=== PATIENT | male | born 1965 | race African-American/Black ===

== ENCOUNTER 2017-01-06 12:05 | Emergency (ER) | payer MEDICAID, OTHER ==
[~2017-01-06] VITALS: Ht 188 cm; Wt 113.5 kg
[~2017-01-06 12:05] MED LIST: AMLO2.5T PO; BENZ0.5T PO
[2017-01-06 12:06] VITALS: BP 185/109; PULSE 94; RESP 20; TEMP 98.2; O2SAT 100
--- NOTE | 2017-01-06 12:50 | PD ---
HPI . Weakness Chief Complaint: Medical Clearance Time Seen by Provider: 12:47 Travel History International Travel<30 days: No Contact w/Intl Traveler<30days: No Traveled to known affect area: No History of Present Illness HPI This patient presents stating that he needs to make sure that it is okay for him to take his psychiatric medications and his blood pressure medications on an as-needed basis. He states that he has had weakness, dizziness, cramping for somewhere between 7 months and 2 years. There was nothing new or different today that made him come to the emergency department. History Past Medical Histgory Tetanus Vaccination: > 5 Years Hx Cancer: No Past Surgical History Surgical History: No Previous Surgery Social History Alcohol Use: Yes ("ONCE IN A WHILE") Tobacco Use: Yes (4/day) Allergies-Medications (Allergen,Severity, Reaction): Coded Allergies: No Known Allergies (Verified Adverse Reaction, Unknown, 01/06/17) Reported Meds & Prescriptions Reported Meds & Active Scripts Active Amlodipine (Amlodipine Besylate) 2.5 Mg Tab 2.5 Mg PO DAILY Reported Benztropine (Benztropine Mesylate) 0.5 Mg Tab 2 Mg PO HS Review of Systems Except as stated in HPI: all other systems reviewed are Neg General / Constitutional: No: Fever, Chills Eyes: No: Blurred Vision HENT: Positive: Lightheadedness, No: Headaches Cardiovascular: No: Chest Pain or Discomfort Respiratory: No: Shortness of Breath Gastrointestinal: No: Nausea, Vomiting Genitourinary: No: Urgency, Frequency, Dysuria Musculoskeletal: Positive: Cramping Neurologic: Positive: Weakness Psychiatric: Positive: Disorder of Thought Physical Exam Narrative GENERAL: Healthy-appearing man who is in no acute distress. SKIN: Warm and dry with no rash or lesion. Good skin turgor. HEAD: Normocephalic/atraumatic. EYES: Conjunctivae are pink. Sclera are anicteric. ENT: Galliano and moist mucous membranes. NECK: Supple. CARDIOVASCULAR: Heart sounds are normal. RESPIRATORY: Lungs are clear with full air movement throughout. MUSCULOSKELETAL: Atraumatic. No muscular tenderness. NEUROLOGICAL: A and O 3. Cranial nerves are intact. Distal motor strength is full and equal. PSYCHIATRIC: Appropriate mood and affect. Data Data Last Documented VS Vital Signs Date Time Temp Pulse Resp B/P (MAP) Pulse Ox O2 Delivery O2 Flow Rate FiO2 11/16/17 12:06 98.2 94 20 185/109 (134) 100 Room Air MDM Medical Screen Exam Complete: Yes Emergency Medical Condition: No Narrative Course A medical screening exam was performed: At the time of evaluation the presenting medical condition was determined not to be of an emergent nature. The patient was given the option of receiving additional care, but declined. Patient was given options for additional community resources from which to obtain care. The Patient Has Been advised to seek medical attention for their presenting complaint. The patient has been advised to return to the ER at any time if an emergent condition develops. Primary Impression: Encounter for medical screening examination Condition: Stable Zee Perez MD Jan 06, 2017 12:50
== END 2017-01-06 13:03 | disposition left against medical advice (07) ==
LOC: NEPK 12:05
DX: R53.1 Weakness (principal); R42 Dizziness and giddiness; F17.200 Nicotine dependence, unspecified, uncomplicated; Z79.899 Other long term (current) drug therapy
CPT/HCPCS: 99281

== ENCOUNTER 2017-05-05 16:04 | Emergency (ER) | payer MEDICAID ==
[~2017-05-05] VITALS: Ht 188 cm; Wt 130.0 kg
[2017-05-05 16:39] VITALS: BP 190/120; PULSE 76; RESP 17; TEMP 98.2; O2SAT 98
[2017-05-05 17:54] VITALS: BP 108/57; PULSE 70; RESP 18; TEMP 98.7; O2SAT 98
[2017-05-05 18:20] VITALS: BP 189/124
[2017-05-05] MEDS ORDERED: LISI10TA3 PO (18:20)
--- NOTE | 2017-05-05 18:20 | PD ---
HPI Chief Complaint: Hypertension Time Seen by Provider: 17:55 Travel History International Travel<30 days: No Contact w/Intl Traveler<30days: No Traveled to known affect area: No History of Present Illness HPI Is a 52-year-old man presents to the emergency department complaining of elevated blood pressure. States she is a history of high blood pressure and schizophrenia. His primary doctor increase his amlodipine just recently. Is not sure what the current doses. This was yesterday. Blood pressure remained elevated today. Psychiatrist sent him to the emergency department. History Past Medical History Narrative Medical Hypertension Schizophrenia Social History Alcohol Use: Yes ("ONCE IN A WHILE") Tobacco Use: Yes (4/day) Allergies-Medications (Allergen,Severity, Reaction): Coded Allergies: No Known Allergies (Verified Adverse Reaction, Unknown, 05/05/17) Reported Meds & Prescriptions Reported Meds & Active Scripts Active Amlodipine (Amlodipine Besylate) 2.5 Mg Tab 2.5 Mg PO DAILY Reported Benztropine (Benztropine Mesylate) 0.5 Mg Tab 2 Mg PO HS Review of Systems Except as stated in HPI: all other systems reviewed are Neg Physical Exam Narrative GENERAL: Well-appearing 52-year-old man, no acute distress. SKIN: Focused skin assessment warm/dry. HEAD: Atraumatic. Normocephalic. EYES: Pupils equal and round. No scleral icterus. No injection or drainage. ENT: No nasal bleeding or discharge. Mucous membranes pink and moist. NECK: Trachea midline. No JVD. CARDIOVASCULAR: Regular rate and rhythm. No murmur appreciated. RESPIRATORY: No accessory muscle use. Clear to auscultation. Breath sounds equal bilaterally. GASTROINTESTINAL: Abdomen soft, non-tender, nondistended. Hepatic and splenic margins not palpable. MUSCULOSKELETAL: No obvious deformities. Some nail clubbing. NEUROLOGICAL: Awake and alert. No obvious cranial nerve deficits. Motor grossly within normal limits. Normal speech. PSYCHIATRIC: Flat affect. Data Data Last Documented VS Vital Signs Date Time Temp Pulse Resp B/P (MAP) Pulse Ox O2 Delivery O2 Flow Rate FiO2 05/05/17 16:39 98.2 76 17 190/120 (143) 98 Orders Orders Basic Metabolic Panel (Bmp) (05/05/17 18:13) MDM Medical Decision Making Medical Screen Exam Complete: Yes Emergency Medical Condition: Yes Differential Diagnosis Hypertension, hypertensive crisis, hypertensive emergency, renovascular hypertension, other Narrative Course Medical decision making INITIAL: 52-year-old male with markedly elevated blood pressure. Otherwise asymptomatic. Referred by a psychiatrist. They made some adjustments to his amlodipine already. Will check his renal function and add small dose of lisinopril. Outpatient follow-up. Diagnosis Primary Impression: Hypertension Additional Impression: Paranoid schizophrenia Additional Instructions: Continue amlodipine. Add lisinopril. Follow-up with your primary doctor next week. Return to the emergency department for any new or worsening symptoms. Med/Other Pt SpecificInfo: Prescription(s) given Scripts Lisinopril (Lisinopril) 10 Mg Tab 10 MG PO DAILY, #30 TAB 0 Refills Prov: Nicanor Crocker MD 05/05/17 Disposition: 01 DISCHARGE HOME Condition: Stable Nicanor Crocker MD May 05, 2017 18:20
[2017-05-05 18:53] LABS: BICARBONATE 27.1 MEQ/L (21.0-32.0); CALCIUM 9.3 MG/DL (8.5-10.1); CREATININE 1.17 MG/DL (0.60-1.30)
== END 2017-05-05 19:31 | disposition home or self-care (01) ==
LOC: NEPD 16:04
DX: I10 Essential (primary) hypertension (principal); F20.0 Paranoid schizophrenia; F17.200 Nicotine dependence, unspecified, uncomplicated; Z79.899 Other long term (current) drug therapy
CPT/HCPCS: 80048; 99283

== ENCOUNTER → 2017-06-27 | Outpatient (CLI) | payer MEDICAID ==
[~2017-06-27] MED LIST changes: +LISI10TA3 PO; +LOSA100T PO; +PALI234P IM
[2017-06-27 11:19] LABS: BASOPHIL % 0.7 % (0.0-2.0); EOSINOPHIL # 0.3 TH/MM3 (0-0.4); EOSINOPHIL % 3.8 % (0.0-4.0); HEMATOCRIT 34.7 % (39.0-51.0); HEMOGLOBIN 11.8 GM/DL (13.0-17.0); LYMPH % 27.6 % (9.0-44.0); LYMPHOCYTE # 1.9 TH/MM3 (1.0-4.8); MEAN CORPUSCULAR HEMOGLOBIN 28.6 PG (27.0-34.0); MEAN PLATELET VOLUME 6.9 FL (7.0-11.0); MONO % 8.7 % (0.0-8.0); MONOCYTE # 0.6 TH/MM3 (0-0.9); NEUT % 59.2 % (16.0-70.0); PLATELET COUNT 271 TH/MM3 (150-450); RED BLOOD COUNT 4.13 MIL/MM3 (4.50-5.90); RED CELL DISTRIBUTION WIDTH 14.2 % (11.6-17.2); WHITE BLOOD COUNT 6.8 TH/MM3 (4.0-11.0)
--- NOTE | 2017-06-28 14:34 | EKG ---
Date Performed: 06/27/2017 Time Performed: 11:32:03 PTAGE: 52 years EKG: Sinus rhythm MODERATE INTRAVENTRICULAR CONDUCTION DELAY NONSPECIFIC T-WAVE ABNORMALITY BORDERLINE ECG NO PREVIOUS TRACING DOCTOR: Nicanor Coulter Interpretating Date/Time 06/28/2017 14:32:25
== END ==
LOC: PHPRE 10:47
PROVIDERS: ATTEND Ophthalmology
DX: Z01.810 Encounter for preprocedural cardiovascular examination (principal); Z01.812 Encounter for preprocedural laboratory examination; H25.043 Posterior subcapsular polar age-related cataract, bilateral; R94.31 Abnormal electrocardiogram [ECG] [EKG]
CPT/HCPCS: 36415; 85025; 93005

== ENCOUNTER → 2017-07-06 | Day surgery (SDC) | payer MEDICAID ==
[~2017-07-06] VITALS: Ht 188 cm; Wt 130.0 kg
[~2017-07-06] MED LIST changes: +ACETYLCHOLINE CHL OPHT SOLN 1:100 2 ML VIAL ONE; +CHLORHEXIDINE GLUCONATE 2 % 1 PACK (2 CLOTHS) TOPICAL PRN; +EPINEPHrine HCL PF/SF (1:1000) 1 MG/ML AMP I-OCULAR ONE; +EPINEPHrine-Lidocaine/BSS (PF/SF) 4-120 mg/16 mL OPTH SYR LEFT EYE ONE; +HYALURONIDASE/LIDOCAINE/BUPIVACAINE 5 ML SYR LEFT EYE ONE; +LACTATED RINGER'S 1000 ML IV PRN; -LISI10TA3 PO; +METOPROLOL TARTRATE 25 MG TAB PO PRN; +MORPHINE SULFATE 2 MG/ML SYRINGE ONE; +POVIDONE IODINE 5% (ANTISEPSIS KIT) 4 APPLICATIONS EACH NARE PRN; +PROPOFOL 200 MG/20 ML AMP ONE; +SODIUM CHLORID 0.9% 500 ML IV PRN; +TOBRAMYCIN/DEXAMETHASONE OPTH OINT 3.5 GM TUBE ONE; +VISCOAT OPHT IRRIG SOLN 0.75 ML SYRINGE ONE; +acetaZOLAMIDE SEQUELS 500 MG SUSTAINED RELEASE CAP ONE
[2017-07-06] MEDS: CYCLOPENTOLATE HCL 1% OPHT SOLN 2 ML BTL LEFT EYE SCH ×3 (08:09→08:19)
[2017-07-06] MEDS: PHENYLEPHRINE HCL 10% OPTH SOLN 5 ML BTL LEFT EYE SCH ×3 (08:09→08:19)
[2017-07-06] MEDS: TROPICAMIDE 1% OPHT SOLN 15 ML BTL LEFT EYE SCH ×3 (08:09→08:19)
[2017-07-06] MEDS: TETRACAINE 0.5% OPTH SOLN 4 ML BTL LEFT EYE SCH ×3 (08:09→08:19)
--- NOTE | 2017-07-06 10:27 | PD.OP ---
Operative Report Date of Surgery: July 06, 2017 Preoperative Diagnosis: (1) Posterior subcapsular age-related cataract of left eye Postoperative Diagnosis: (1) Pseudophakia of left eye Procedure: phacoemulsification and sulcus lens left eye Anesthesia: General Surgeon: Lizzy Ennis Boat Dispatcher(s): none Operation and Findings: Patient was consented for surgery and taken back to the operating room. He was put under general anesthesia and prepped and draped in the usual sterile fashion for ophthalmic surgery. A wire lid speculum was placed in the left eye. A paracentesis incision was created at the 5 o'clock position on the limbus. Vision blue dye, intracameral epishugarcaine, and viscoelastic was injected into the anterior chamber. The main incision was created at the 2 o'clock position on the limbus with a 2.4 mm keratome. A continuous curvilinear capsulorrhexis was made on the anterior lens capsule. Hydrodissection was used to separate the lens from the capsule. Phacoemulsification was used to remove the lens nucleus material. Irrigation and aspiration was used to remove the remaining cortical material. A posterior rent was noted so it was decided to place a sulcus lens. The lens implant ([id number] [id number] SN [id number]) was placed in the sulcus. Viscoelastic was removed with irrigation and aspiration. The incisions were irrigated and found to be watertight. Miochol was injected into anterior chamber. 10-0 nylon suture was placed at main incision. Tobradex ointment, a patch, and shield were placed on the left eye. The patient was sent to PACU in stable condition. Lizzy Ennis MD July 06, 2017 10:27
[2017-07-06 12:00] VITALS: BP 156/110; PULSE 67; RESP 16; TEMP 97.7; O2SAT 98
== END | disposition home or self-care (01) ==
LOC: PHSDC 06:57
PROVIDERS: ATTEND Ophthalmology
DX: H25.042 Posterior subcapsular polar age-related cataract, left eye (principal)
CPT/HCPCS: 00142; 66984; J0171; J2270; J3010; J7040; V2632